=== PATIENT | female | born 1930 | race American Indian/Alaskan Native ===

== ENCOUNTER 2016-12-12 11:36 | Outpatient (CLI) | payer MEDICARE ==
--- NOTE | 2016-12-12 16:39 | Vascular Lab Report ---
RIGHT LOWER EXTREMITY ARTERIAL DUPLEX: REASON FOR EXAM: Right leg pain. COMMENTS ON THE RIGHT: Triphasic waveforms are seen proximally. Monophasic waveforms are seen distally. No flow noted in the posterior tibial artery. Scattered calcific plaque identified throughout the extremity. Findings are consistent with abnormal perfusion. Findings are inconsistent with the ability to heal distal wounds. IMPRESSION: RIGHT: Occluded right posterior tibial artery monophasic flow in the popliteal artery could signify a more proximal stenosis otherwise unidentified. Clinical correlation recommended. Further contrast angiography may be required.
--- NOTE | 2016-12-12 16:41 | Vascular Lab Report ---
Right Lower Extremity Venous Duplex Study: Reason for Exam: Right leg pain. Comments on the Right: All veins visualized are freely compressible without evidence of internal echogenicity. Flow is spontaneous and phasic throughout. No evidence of acute or chronic thrombus is seen in any of the vessels visualized. Soft tissue changes consistent with edema. Comments on the Left: A limited duplex study was done of the proximal veins of the left lower extremity. All veins visualized are freely compressible without evidence of internal echogenicity. Flow is spontaneous and phasic throughout. No evidence of acute or chronic thrombus is seen in any of the vessels visualized. Impression: No evidence of acute or chronic deep venous thrombosis in the right lower extremity.
== END 2016-12-12 11:37 | disposition home or self-care (01) ==
LOC: VAS 11:36
PROVIDERS: ATTEND Specialist
DX: I80.10 Phlebitis and thrombophlebitis of unspecified femoral vein (principal); M17.0 Bilateral primary osteoarthritis of knee; M25.061 Hemarthrosis, right knee